=== PATIENT | female | born 1985 ===

== ENCOUNTER 2018-07-18 12:27 | Inpatient (IN) | payer OTHER ==
[2018-07-18] MEDS ORDERED: Penicillin G Potassium 5 MILL.UNITS VIAL ONE (14:08)
[2018-07-18] MEDS ORDERED: Ondansetron HCl/PF 4 MG/2 ML Vial IVP PRN ×3 (14:18→17:33)
[2018-07-18] MEDS ORDERED: Lactated Ringer's 1,000 ML IV SCH ×2 (14:18)
[2018-07-18] MEDS ORDERED: Lidocaine 1% (PF) 30 ML VIAL SC PRN (14:18)
[2018-07-18] MEDS ORDERED: NS / Oxytocin 40 units/1000ml 1,000 ML IV PRN (14:18)
[2018-07-18] MEDS ORDERED: Butorphanol Tartrate 1 MG/ML VIAL SLOW IVP PRN (14:18)
[2018-07-18] MEDS ORDERED: Penicillin G Potassium 5 MILL.UNITS in Sodium Chloride 0.9% 100 ML IVPB SCH (14:18)
[2018-07-18] MEDS ORDERED: HYDROcodone/Acetaminophen 5/325 mg Tablet PO PRN ×4 (14:18→17:33)
[2018-07-18] MEDS ORDERED: Promethazine HCl 25 MG/ML VIAL IM PRN ×2 (14:18→15:49)
[2018-07-18] MEDS ORDERED: Ibuprofen 800 MG TAB PO PRN (14:18)
[2018-07-18 14:30] LABS: Hemoglobin 12.3 g/dL (12.0-16.0); Mean Corpuscular HGB CONC 32.8 g/dL (32.0-36.0); Mean Corpuscular Hemoglobin 28.1 pg (27.0-31.0); Mean Corpuscular Volume 85.9 fL (78.0-98.0); Mean Platelet Volume 8.6 fL (7.4-10.4); Platelet Count 274 thou/uL (130-400); RBC Distribution Width 13.5 % (11.5-14.5); Red Blood Cell (RBC) Count 4.37 mill/uL (4.20-5.40); White Blood Cell (WBC) Count 10.6 thou/uL (4.8-10.8)
[2018-07-18] MEDS ORDERED: Bupivacaine 0.5% 20 ML, fentaNYL Citrate/PF 400 MCG in Sodium Chloride 0.9% 72 ML EPIDURAL SCH (14:45)
[2018-07-18 15:01] LABS: HBSAg Index 0.19 S/CO (0-0.99); Hep B Surf Ag Non-Reactive S/CO (NonReactive); Syphilis Antibody Nonreactive (Nonreactive); Syphilis Antibody Index 0.05 S/CO (<1.00 Non-Reactive)
[2018-07-18] MEDS ORDERED: Eucerin (Mineral Oil/Petrolatum,White) 30 gm Jar TOP PRN (15:49)
[2018-07-18] MEDS ORDERED: diphenhydrAMINE 50 MG/ML VIAL IVP PRN (15:49)
[2018-07-18] MEDS ORDERED: Lactated Ringer's 500 ML IV PRN (15:49)
[2018-07-18] MEDS ORDERED: Naloxone HCl 0.4 mg/ml Vial IVP PRN ×2 (15:49)
[2018-07-18] MEDS ORDERED: ePHEDrine/0.9% NaCl/PF SYRINGE 50 mg/10 ml SLOW IVP PRN (15:49)
[2018-07-18] MEDS ORDERED: Acetaminophen 325 MG TAB PO PRN (15:49)
[2018-07-18] MEDS ORDERED: fentaNYL Citrate/PF 400 MCG, Bupivacaine 0.5% 20 ML in Sodium Chloride 0.9% 72 ML EPIDURAL SCH (16:00)
[2018-07-18] MEDS ORDERED: Communication Order-Pharmacy FS SCH (16:00)
[2018-07-18] MEDS ORDERED: diphenhydrAMINE 25 MG CAP PO PRN (17:33)
[2018-07-18] MEDS ORDERED: Lanolin Ointment 7 GM TUBE TOP PRN (17:33)
[2018-07-18] MEDS ORDERED: NS / Oxytocin 40 units/1000ml 1,000 ML IV SCH (17:33)
[2018-07-18] MEDS ORDERED: Adacel (T-DAP) 0.5 ML VIAL IM ONE (17:33)
[2018-07-18] MEDS ORDERED: Bisacodyl 10 MG SUPP PR PRN (17:33)
[2018-07-18] MEDS ORDERED: Benzocaine/Menthol 20-0.5% 60 ML CAN TOP PRN (17:33)
[2018-07-18] MEDS ORDERED: Milk Of Magnesia 30 ML UDCUP PO PRN (17:33)
[2018-07-18] MEDS ORDERED: Preparation H Ointment 28 GM TUBE PR PRN (17:33)
[2018-07-18] MEDS ORDERED: Penicillin G 2.5 MILL.units 2.5 MILL.UNITS in Premix Bag 1 BAG IVPB SCH (18:00)
[2018-07-18] MEDS ORDERED: Ferrous Sulfate 325 MG TAB PO SCH (18:00)
[2018-07-18] MEDS: Docusate Calcium (SURFAK) 240 MG CAP PO SCH (20:41)
[2018-07-18] MEDS: Ibuprofen 800 MG TAB PO SCH (20:41)
[2018-07-19] MEDS: Ibuprofen 800 MG TAB PO SCH ×3 (04:45→22:36)
[2018-07-19 05:53] LABS: Hemoglobin 11.6 g/dL (12.0-16.0); Mean Corpuscular HGB CONC 32.8 g/dL (32.0-36.0); Mean Corpuscular Hemoglobin 28.4 pg (27.0-31.0); Mean Corpuscular Volume 86.6 fL (78.0-98.0); Mean Platelet Volume 8.5 fL (7.4-10.4); Platelet Count 260 thou/uL (130-400); RBC Distribution Width 13.4 % (11.5-14.5); Red Blood Cell (RBC) Count 4.08 mill/uL (4.20-5.40); White Blood Cell (WBC) Count 12.6 thou/uL (4.8-10.8)
[2018-07-19] MEDS: Ferrous Sulfate 325 MG TAB PO SCH ×2 (09:47→19:45)
[2018-07-19] MEDS: Docusate Calcium (SURFAK) 240 MG CAP PO SCH ×2 (09:48→22:36)
[2018-07-19] MEDS: Prenatal Vitamin 1 TAB PO SCH (09:48)
[2018-07-20] MEDS: Ibuprofen 800 MG TAB PO SCH (06:01)
[2018-07-20] MEDS: Ferrous Sulfate 325 MG TAB PO SCH (09:42)
[2018-07-20] MEDS: Prenatal Vitamin 1 TAB PO SCH (09:42)
[2018-07-20] MEDS: Docusate Calcium (SURFAK) 240 MG CAP PO SCH (09:42)
== END 2018-07-20 12:30 | disposition home or self-care (01) | DRG 775 ==
LOC: L&D/OP 12:27 → EDSEX 13:48 → L&D 13:48 → EDUNIT# 13:48 → 3SW 19:44
PROVIDERS: ADMIT Family Medicine; ATTEND Family Medicine
PROC: 10E0XZZ Delivery of Products of Conception, External Approach (ICD-10-PCS; principal; 2018-07-18)
DX: O99.824 Streptococcus B carrier state complicating childbirth (principal); Z3A.39 39 weeks gestation of pregnancy; Z37.0 Single live birth; O70.0 First degree perineal laceration during delivery
CPT/HCPCS: 36415; 51702; 85027; 86780; 86850; 86900; 86901; 87340; 90715; 99285; J2540; J3010; J3490; J7050

== ENCOUNTER 2018-12-28 15:27 | Emergency (ER) | payer OTHER ==
[2018-12-28] MEDS ORDERED: Lidocaine 1% w/Epinephrine 1:100K 20 ML VIAL ONE (17:08)
== END 2018-12-28 17:48 | disposition home or self-care (01) ==
LOC: ERS 15:27
DX: L02.31 Cutaneous abscess of buttock (principal)
CPT/HCPCS: 10061; J2001